=== PATIENT | male | born 1975 | race Two or more races ===

== ENCOUNTER 2024-08-09 19:12 | Emergency (ER) | payer MEDICARE, MEDICAID ==
[~2024-08-09] VITALS: Ht 162.6 cm; Wt 112.7 kg
[2024-08-09 20:28] VITALS: BP 128/75; PULSE 66; RESP 16; TEMP 97.6; O2SAT 97
[2024-08-09] MEDS: ONDANSETRON ODT 4 MG TAB PO ONE (20:55)
[2024-08-09] MEDS: HYDROcodone-ACET 5/325MG TAB PO ONE (20:56)
[2024-08-09] MEDS ORDERED: ACET500T58 PO (20:56)
--- NOTE | 2024-08-09 20:57 | ED.PDOC ---
Musculoskeletal HPI Comments 49-year-old male presents to ER with complaints of right foot pain x1 day. Patient reports that he woke up with pain/swelling localized to "arch" of right foot this morning. Denies any trauma/injury, reporting that he was standing on his feet for several hours yesterday while cleaning out his garage. He rates his current pain a 10/10 localized to right foot without radiation. Denies use of medications for current symptoms. Denies fever, numbness/tingling, right ankle pain or any further symptoms/complaints Chief Complaint: Lower Extremity Time Seen by MD: 19:46 Primary Care Provider: CRUZ Robertson Notes: Nurses Notes, Medications, Allergies Allergies: Coded Allergies: Sulfa Antibiotics (Unverified Allergy, Unknown, 01/22/14) Vancomycin (Unverified Allergy, Unknown, 01/22/14) Home Meds Active Scripts Acetaminophen (Acetaminophen) 500 Mg Tab, 500 MG PO Q4HPRN, #30 TAB 0 Refills Prov:ANITA PALOMINO 08/09/24 Information Source: Patient Mode of Arrival: Wheelchair Past Medical History PAST MEDICAL HISTORY: Arthritis, Cancer (brain cancer- in remission since 2000 with regular follow-ups) Past Medical History (Other): Gout Surgical History (Other): Right hip replacement x2 Gastric bypass Craniotomy Family History Family History: Unknown Social History Smoker: Non-Smoker Alcohol: Denies ETOH Use Drugs: Denies Drug Use Lives In: Home Constitutional: denies: chills, diaphoresis, fatigue, fever, malaise, sweats, weakness, others EENTM: denies: blurred vision, double vision, ear bleeding, ear discharge, ear drainage, ear pain, ear ringing, eye pain, eye redness, hearing loss, mouth pain, mouth swelling, nasal discharge, nose bleeding, nose congestion, nose pain, photophobia, tearing, throat pain, throat swelling, voice changes, others Respiratory: denies: cough, hemoptysis, orthopnea, SOB at rest, shortness of breath, SOB with excertion, stridor, wheezing, others Cardiovascular: denies: chest pain, dizzy spells, diaphoresis, Dyspnea on exertion, edema, irregular heart beat, left arm pain, lightheadedness, palpitations, PND, syncope, others Gastrointestinal: denies: abdomen distended, abdominal pain, blood streaked bowels, constipated, diarrhea, dysphagia, difficulty swallowing, hematemesis, melena, nausea, poor appetite, poor fluid intake, rectal bleeding, rectal pain, vomiting, others Genitourinary: denies: burning, dysuria, flank pain, frequency, hematuria, incontinence, penile discharge, penile sore, pain, testicle pain, testicle swelling, urgency, others Neurological: denies: dizziness, fainting, headache, left sided numbness, left sided weakness, numbness, paresthesia, pre-existing deficit, right sided numbness, right sided weakness, seizure, speech problems, tingling, tremors, weakness, others Musculoskeletal: reports: others (As stated in HPI) Integumetry: denies: bruises, change in color, change in hair/nails, dryness, laceration, lesions, lumps, rash, wounds, others Allergic/Immunocompromised: denies: Difficulty Healing, Frequent Infections, Hives, Itching, others Hematologic/Lymphatic: denies: anemia, blood clots, easy bleeding, easy bruising, swollen glands, others Endocrine: denies: excessive hunger, excessive sweating, excessive thirst, excessive urination, flushing, intolerance to cold, intolerance to heat, unexplained weight gain, unexplained weight loss, others Psychiatric: denies: anxiety, bipolar disorder, depression, hopeless, panic disorder, schizophrenia, sleepless, suicidal, others Physical Exam General Appearance: No Apparent Distress, Obese HEENT: PERRL/EOMI Neck: Full Range of Motion, Non-Tender, Normal Respiratory: Chest Non-Tender, Lungs Clear, No Accessory Muscle Use, No Respiratory Distress, Normal Breath Sounds Cardiovascular: No Murmur, No Gallop, Regular Rate/Rhythm Breast Exam: Deferred Gastrointestinal: NOT DONE Genitalia: Deferred Pelvic: Deferred Rectal: Deferred Extremities: Normal capillary refill, Normal range of motion Neurologic: Alert, No Motor Deficits, Normal Affect, Normal Mood, No Sensory Deficits Cerebellar Function: Normal Reflexes: Normal Skin: Dry, Normal Color, Warm Peripheral Pulses: 2+ dorsalis pedis (R), 2+ dorsalis pedis (L) Lymphatic: No Adenopathy Was a procedure done? Was a procedure done?: No Sedation Sedation?: No Images 1 - TTP noted with minimal swelling, no further skin changes noted. Gait slowed due to pain localized to medial aspect of right foot. No TTP to right distal tibia or other TTP to right lower extremity noted. Pulses intact Differential Diagnosis EXT Differential Diagnosis: Cellulitis, Fracture, Dislocation, Gout, Neurovascular injury, Other (neoplasm) X-Ray, Labs, Meds, VS Vital Signs Date Time Temp Pulse Resp B/P (MAP) Pulse Ox O2 Delivery O2 Flow Rate FiO2 08/09/24 20:28 Room Air* 0 21 08/09/24 20:28 97.6 66 16 128/75 (92) 97 97.6 08/09/24 19:19 97.6 66 16 128/75 (92) 97 97.6 Current Medications Medications (Trade) Dose Ordered Sig/Doc Route Start Time Stop Time Status Last Admin Acetaminophen/ Hydrocodone Bitart ([place] 5/325MG Tab) 1 tab ONCE ONCE PO 08/09/24 21:00 08/09/24 21:01 DC 08/09/24 20:56 Ondansetron HCl (Zofran Po) 4 mg ONCE ONCE PO 08/09/24 21:00 08/09/24 21:01 DC 08/09/24 20:55 PATIENT: ARLENE AVERY FACCT: [id number]: [id number] : 1975 LOC: ER ROOM / BED: / AGE / SEX: 49 / M ADM STATUS: REG ER SERVICE 49 ORDERING PHYSICIAN: ANITA PALOMINO PROCEDURE(s): RFOOT - R FOOT 3 VIEW XRAY REASON: right foot pain ORDER NUMBER(s): [id number], ACCESSION NUMBER(s): [id number] CLINICAL INDICATION: right foot pain TECHNIQUE: 3 radiographic views of the right foot were obtained. Comparison: None FINDINGS/IMPRESSION: There is no evidence of acute fracture or dislocation. The visualized joint space is well maintained. The alignment is anatomical. Sclerosis over the distal tibia which may represent bone infarct/ enchondroma with low-grade chondral sarcoma not completely excluded. Mild soft tissue edema of the foot. ATED BY: IVY GUERRERO DO DICTATED DATE/TIME: 08/09/242122 SIGNED BY: IVY GUERRERO DO SIGNED DATE/TIME: 08/09/242122 CC: Right foot x-ray reviewed [place] 5/325 mg p.o. ordered Zofran 4 mg p.o. ordered Patient neurovascularly intact and reported improvement in symptoms prior to discharge Case and imaging report reviewed and discussed with Dr. Jenkins who's agreeable with plan of care on discharge and to f/u with orthopedics tomorrow with regards to findings on right foot x-ray Advised on rest/no strenuous activity, elevation and alternate ice on/off ass needed for pain Patient provided copy of x-ray imaging report. X-ray imaging report was also reviewed and discussed with patient in full details. Patient notes he will follow-up with orthopedics tomorrow Advised to follow up with PCP and orthopedics in 1 day Patient verbalized understanding and agreeable with current plan of care Advised to return to ER immediately if symptoms worsen Images Reviewed?: Images reviewed and evaluated by me Time of 1ST Reevaluation: 20:52 Reevaluation 1ST: N/A Patient Education/Counseling: Diagnosis, Treatment, Prognosis, Need For Follow Up Family Education/Counseling: No Family Present Departure 1 Departure Time of Disposition: 21:44 Impression: Primary Impression: Sprain of foot, right Qualified Codes: S93.601A - Unspecified sprain of right foot, initial encounter Additional Impression: Bony sclerosis Disposition: 01 HOME / SELF CARE / HOMELESS Condition: Stable e-Prescriptions Acetaminophen (Acetaminophen) 500 Mg Tab 500 MG PO Q4HPRN, #30 TAB 0 Refills Prov: ANITA PALOMINO 08/09/24 Discharged With: Significant Other Critical Care Note Critical Care Time?: No Stability Stability form required: No Heart Score Heart Score: Heart Score Response (Comments) Value History N/A 0 EKG N/A 0 Age N/A 0 Risk Factors N/A 0 Troponin N/A 0 Total 0 ANITA PALOMINO August 09, 2024 20:57
--- NOTE | 2024-08-09 21:26 | DVH ---
CLINICAL INDICATION: right foot pain TECHNIQUE: 3 radiographic views of the right foot were obtained. Comparison: None FINDINGS/IMPRESSION: There is no evidence of acute fracture or dislocation. The visualized joint space is well maintained. The alignment is anatomical. Sclerosis over the distal tibia which may represent bone infarct/ enchondroma with low-grade chondral sarcoma not completely excluded. Mild soft tissue edema of the foot.
== END 2024-08-09 22:00 | disposition home or self-care (01) ==
LOC: ER 19:15
DX: S93.601A Unspecified sprain of right foot, initial encounter (principal); M89.9 Disorder of bone, unspecified; M19.90 Unspecified osteoarthritis, unspecified site; Z85.841 Personal history of malignant neoplasm of brain; Z98.890 Other specified postprocedural states; Z98.84 Bariatric surgery status; Z88.1 Allergy status to other antibiotic agents; Z88.2 Allergy status to sulfonamides; X58.XXXA Exposure to other specified factors, initial encounter; Y93.89 Activity, other specified; Y92.89 Other specified places as the place of occurrence of the external cause; Y99.8 Other external cause status
CPT/HCPCS: 73630; 99283; Q0162